=== PATIENT | female | born 1955 | race Hispanic/Latino ===

== ENCOUNTER 2018-01-16 18:41 | Emergency (ER) | payer SELFPAY ==
[~2018-01-16] VITALS: Ht 162.6 cm; Wt 70.0 kg
[~2018-01-16 18:41] MED LIST: ULTRAM50 M1 OR
[2018-01-16 19:52] LABS: HEMATOCRIT 36.2 % (37.0-47.0); HEMOGLOBIN 12.1 g/dl (12.0-16.0); IMMATURE GRANULOCYTES 0.5 % (0.0-1.0); MEAN CELL VOLUME 87.2 fL CALC (80.0-100.0); MEAN CORPUSCULAR HGB 29.2 pG CALC (26.0-32.0); MEAN CORPUSCULAR HGB CONC 33.4 g/L CALC (32.0-36.0); NEUT# 4.8 thou/uL (2.00-7.15); RED BLOOD COUNT 4.15 mill/uL (4.20-5.60); RED CELL DISTRI WIDTH 12.4 % (11.5-15.5)
[2018-01-16 19:59] LABS: ANION GAP 15 (6-22 (CALC)); BUN 15 mg/dL (8-23); BUN/CREATININE RATIO 21 (12-20 (CALC)); CARBON DIOXIDE 25 mmol/l (22-30); CHLORIDE 106 mmol/l (95-108); CREATININE 0.7 mg/dL (0.5-1.0); GFR > 60 ML/MIN (>=60 (CALC)); GFR FOR AFR.AMER. > 60 ML/MIN (>=60 (CALC)); SODIUM 143 mmol/l (137-146)
[2018-01-17] MEDS ORDERED: HYDROCO/APAP1 TA9 PO (01:27)
[2018-01-17] MEDS ORDERED: MOTRIN400 MG PO (01:28)
[2018-01-17] MEDS ORDERED: ZOFRAN4 M1 PO (01:44)
[2018-01-17 01:56] VITALS: BP 136/56
== END 2018-01-17 02:10 | disposition home or self-care (01) | DRG 563 ==
LOC: ED 18:41
PROVIDERS: Family Medicine
PROC: 0PSHXZZ Reposition Right Radius, External Approach (ICD-10-PCS; principal; 2018-01-16)
DX: S52.501A Unspecified fracture of the lower end of right radius, initial encounter for closed fracture (principal); W07.XXXA Fall from chair, initial encounter; Y92.009 Unspecified place in unspecified non-institutional (private) residence as the place of occurrence of the external cause